=== PATIENT | female | born 1990 | race Caucasian/White ===

== ENCOUNTER 2021-12-11 16:16 | Emergency (ER) | payer OTHER, SELFPAY ==
[2021-12-11 16:27] VITALS: BP 131/97; PULSE 86; RESP 16; TEMP 37; O2SAT 100
--- NOTE | 2021-12-11 16:49 | ED.GENADULT ---
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 Patient reports her back pain is achy in nature. She also states, sometimes I feel an occasional spasm. Additionally, she reports pain will shoot into left buttocks. No relief with Excedrin. Standing and heat provide some relief. Sitting worsens back pain. Related Data Home Medications Medication Instructions Recorded Confirmed bupropion HCl 150 mg 24 hr tablet, mg PO 12/11/21 extended release fluoxetine 20 mg capsule mg 12/11/21 hydrochlorothiazide 25 mg tablet mg 12/11/21 Allergies Allergy/AdvReac Type Severity Reaction Status Date / Time cefprozil [From Cefzil] Allergy Rash Verified 12/11/21 16:24 Review of Systems Review of Systems: Denies fever, chills, weakness, fatigue, skin color changes, paresthesias, bladder/bowel difficulty, muscle cramps, shortness of breath, chest pain, heart palpitations, abdominal pain, nausea, vomiting, diarrhea, and constipation Exam Narrative: GENERAL: Well-appearing, well-nourished, and in no acute distress. HEAD: Normocephalic, atraumatic. NECK: Supple. No lymphadenopathy or nuchal rigidity. No evidence of pain, decreased ROM, or deformity. CHEST: Lung sounds are clear to auscultation in bilateral lung arreola. No respiratory distress. HEART: Regular rate and rhythm. No murmur heard. Normal peripheral pulses. ABDOMEN: Soft, nontender, nondistended, normal active bowel sounds in all quadrants. No guarding. No rebound tenderness. No pulsatile or palpable abdominal mass(es). No CVAT EXTREMITIES: Normal range of motion. No edema. BACK: Full ROM. No evidence of deformity, spasm, mass, spinal tenderness, or swelling. Bilateral SLR tests negative. Normal gait. Left-sided low back pain is elicited with all range of motion. SKIN: Warm, dry, no rash. No skin color changes. Excellent turgor. NEURO: No focal deficits. Alert and oriented x3. Course Course Level of Care: [facility] Visit Vital Signs Vital signs: Vital Signs Temperature 98.6 F 12/11/21 16:27 Pulse Rate 86 09/16/22 16:27 Respiratory Rate 16 12/11/21 16:27 Blood Pressure 131/97 H 12/11/21 16:27 Pulse Oximetry 100 12/11/21 16:27 Oxygen Delivery Room Air 12/11/21 16:27 Temperature 98.6 F 12/11/21 16:27 Pulse Rate 86 12/11/21 16:27 Respiratory Rate 16 12/11/21 16:27 Blood Pressure 131/97 H 12/11/21 16:27 Pulse Oximetry 100 12/11/21 16:27 Oxygen Delivery Room Air 12/11/21 16:27 Medical Decision Making Differential Diagnosis Differential Diagnosis: Spinal stenosis, radiculopathy/sciatica,cauda equina syndrome, sacroiliac pathology, fracture, strain, spasm, UTI, pyelonephritis, nephrolithiasis Vital Signs Vital Signs: Vital Signs Temperature 98.6 F 12/11/21 16:27 Pulse Rate 86 12/11/21 16:27 Respiratory Rate 16 12/11/21 16:27 Blood Pressure 131/97 H 12/11/21 16:27 Pulse Oximetry 100 12/11/21 16:27 Oxygen Delivery Room Air 12/11/21 16:27 Temperature 98.6 F 12/11/21 16:27 Pulse Rate 86 12/11/21 16:27 Respiratory Rate 16 12/11/21 16:27 Blood Pressure 131/97 H 12/11/21 16:27 Pulse Oximetry 100 12/11/21 16:27 Oxygen Delivery Room Air 12/11/21 16:27 Due to an elevated blood pressure, I had a detailed discussion with the patient and/or guardian regarding the need for follow-up with their primary care provider within the next 3-4 days. Patient verbalized understanding and agreed. Critical Care Time Critical Care Time Critical Care Time: No Discharge Plan Discharge Clinical Impression: Strain of lumbar region Qualifiers: Encounter type: initial encounter Qualified Code(s): S39.012A - Strain of muscle, fascia an
== END 2021-12-11 17:01 | disposition home or self-care (01) ==
PROVIDERS: Emergency Provider Nurse Practitioner Family
DX: S39.012A Strain of muscle, fascia and tendon of lower back, initial encounter (principal); X58.XXXA Exposure to other specified factors, initial encounter; M54.32 Sciatica, left side
CPT/HCPCS: 99213; G0463